=== PATIENT | female | born 1995 | race Two or more races ===

== ENCOUNTER 2016-10-06 13:41 | Emergency (ER) | payer OTHER ==
[2016-10-06 13:51] VITALS: BP 117/65; PULSE 88; TEMP 98.3; BMI 31.0
--- NOTE | 2016-10-06 16:43 | PDOC ---
History of Present Illness - General History Source: Patient Exam Limitations: No Limitations - History of Present Illness Initial Comments: CHIEF COMPLAINT: 21 y/o M2, approximately 17 week female with due date of 03/14/17 c/o vaginal bleeding today. HISTORY OF PRESENT ILLNESS: The patient states when she went to the bathroom earlier today she saw red blood on the toilet paper when she wiped. She also admits to some lower abdominal cramping. She denies f/c, n/v/d, CP, SOB, back pain, hematuria, dysuria, passage of clots. She is not actively bleeding. She is taking vitamins. Her 2 prior miscarriages were in the first trimester of both pregnancies. KENNEL MANAGER DOG TRACK is Dr. Li Vital signs on arrival are within normal limits. REVIEW OF SYSTEMS: GENERAL/CONSTITUTIONAL: No fever/chills. No weakness. No weight change. HEAD, EYES, EARS, NOSE AND THROAT: No change in vision. No ear pain or discharge. No sore throat. CARDIOVASCULAR: No chest pain or shortness of breath. RESPIRATORY: No cough, wheezing, or hemoptysis. GASTROINTESTINAL: +lower abd cramping. No nausea, vomiting, diarrhea. GENITOURINARY: No dysuria, frequency, or change in urination. +red vaginal bleeding on toilet paper MUSCULOSKELETAL: No joint or muscle swelling or pain. No neck or back pain. SKIN: No rash or easy bruising. NEUROLOGIC: No headache, vertigo, loss of consciousness, or loss of sensation. PHYSICAL EXAM: GENERAL: The patient is awake, alert, and fully oriented, in no acute distress. She is well appearing and ambulatory. HEAD: Normal with no signs of trauma. ENT: Pupils equal, round and reactive to light, extraocular movements intact, sclera anicteric, conjunctiva clear. Neck supple. LUNGS: Clear to auscultation bilaterally. Normal excursion. No respiratory distress or use of accessory muscles. CV: RRR, S1/S2, no MRG. Cap refill < 2 sec. ABDOMEN: Soft, non-distended, very minimal TTP of suprapubic region. VAGINAL: Deferred EXTREMITIES: Normal range of motion, no edema. NEUROLOGICAL: Normal speech, normal gait. CN II-XII grossly intact. PSYCH: Normal mood, normal affect. SKIN: Warm, dry, normal turgor, no rashes or lesions noted. <Melissa Gilbert - Last Filed: 10/06/16 18:47> <Abel Garces - Last Filed: 10/06/16 20:53> - General Chief Complaint: Vaginal Bleeding Stated Complaint: SEEING BLOOD (17 WEEKS ) Time Seen by Provider: 10/06/16 16:41 Past History - Past Medical History Other medical history: denies - Psycho/Social/Smoking Cessation Hx Anxiety: No Suicidal Ideation: No Smoking History: Never smoked Have you smoked in the past 12 months: No Information on smoking cessation initiated: No Hx Alcohol Use: No Drug/Substance Use Hx: No Substance Use Type: None <Melissa Gilbert - Last Filed: 10/06/16 18:47> <Abel Garces - Last Filed: 10/06/16 20:53> - Past Medical History Allergies/Adverse Reactions: Allergies Allergy/AdvReac Type Severity Reaction Status Date / Time No Known Allergies Allergy Verified 10/06/16 13:51 Home Medications: Ambulatory Orders NK [No Known Home Medication] 10/06/16 *Physical Exam - Vital Signs Last Vital Signs Temp Pulse Resp BP Pulse Ox 98.3 F 88 20 117/65 100 10/06/16 13:48 10/06/16 13:48 10/06/16 13:48 10/06/16 13:48 10/06/16 13:48 <Melissa Gilbert - Last Filed: 10/06/16 18:47> - Vital Signs Last Vital Signs Temp Pulse Resp BP Pulse Ox 98.3 F 88 20 117/65 100 10/06/16 13:48 10/06/16 13:48 10/06/16 13:48 10/06/16 13:48 10/06/16 13:48 <Abel Garces - Last Filed: 10/06/16 20:53> ED Treatment Course - LABORATORY CBC & Chemistry Diagram: 10/06/16 17:40 10/06/16 17:40 <Melissa Gilbert - Last Filed: 10/06/16 18:47> - LABORATORY CBC & Chemistry Diagram: 10/06/16 17:40 10/06/16 17:40 - ADDITIONAL ORDERS Additional order review: Laboratory Results 10/06/16 10/06/16 10/06/16 17:40 17:40 17:40 Sodium 141 Potassium 3.9 Chloride 104 Carbon Dioxide 23 Anion Gap 14 BUN 5 L Creatinine 0.5 L Creat Clearance w eGFR > 60 Random Glucose 79 Calcium 9.1 Total Bilirubin 0.4 AST 23 ALT 41 Alkaline Phosphatase 74 Total Protein 7.2 Albumin 3.7 Urine Color Colorless Urine Appearance Clear Urine pH 7.0 Urine Protein Negative Urine Glucose (UA) Negative Urine Ketones Negative Urine Blood 2+ H Urine Nitrite Negative Urine Bilirubin Negative Urine Urobilinogen Negative Ur Leukocyte Esterase Negative Urine RBC <1 Urine WBC <1 Ur Epithelial Cells Rare Urine Bacteria Rare Blood Type O POSITIVE Antibody Screen Negative 10/06/16 17:40 RBC 3.67 MCV 88.4 MCHC 34.4 RDW 13.3 MPV 8.1 Neutrophils % 68.6 Lymphocytes % 21.2 Monocytes % 8.4 Eosinophils % 1.3 Basophils % 0.5 <Abel Garces - Last Filed: 10/06/16 20:53> Medical Decision Making - Medical Decision Making A/P: 21 y/o female, approximately 17 weeks with vaginal bleeding today. Plan is as follows: 1. Labs 2. UA/culture 3. Ultrasound Bedside ultrasound confirmed heart tones. I am signing this patient out to my colleague: RAFFY Garces In brief, this patient is being seen in the ED for a chief complaint of: vaginal bleeding 17 weeks I have completed the initial assessment interview note and have ordered: Labs, UA, ultrasound I have reviewed the following results: labs, UA Pending results are: Ultrasound Plan for disposition is as follows: Most likely discharge <Melissa Gilbert - Last Filed: 10/06/16 18:47> *DC/Admit/Observation/Transfer <Melissa Gilbert - Last Filed: 10/06/16 18:47> - Discharge Dispostion Admit: No <Abel Garces - Last Filed: 10/06/16 20:53> Diagnosis at time of Disposition: Vaginal bleeding before 22 weeks gestation, Threatened - Discharge Dispostion Disposition: HOME Condition at time of disposition: Stable - Referrals Referrals: Shazia Handley MD [Primary Care Provider] - - Patient Instructions Printed Discharge Instructions: DI for Threatened Additional Instructions: FOLLOW UP WITH YOUR KENNEL MANAGER DOG TRACK EARLY NEXT WEEK. CALL TO SCHEDULE APPOINTMENT. RETURN IF SYMPTOM WORSEN OR ANY CONCERNS FOR FURTHER EVALUATION. Print Language: INDONESIAN
--- NOTE | 2016-10-06 17:52 | PDOC ---
[id number]/65 100 10/06/16 13:48 10/06/16 13:48 10/06/16 13:48 10/06/16 13:48 10/06/16 13:48 - Physical Exam Comments: 10/06/16 17:52 The patient was examined by [CARMEN Watson] under my direct supervision. I personally evaluated the patient. I concur with the above findings and the plan of care. ED Treatment Course - LABORATORY CBC & Chemistry Diagram: 10/06/16 17:40 10/06/16 17:40 *DC/Admit/Observation/Transfer Diagnosis at time of Disposition: Vaginal bleeding before 22 weeks gestation, Threatened - Discharge Dispostion Disposition: HOME Condition at time of disposition: Stable - Referrals Referrals: Shazia Handley MD [Primary Care Provider] - - Patient Instructions Printed Discharge Instructions: DI for Threatened Additional Instructions: FOLLOW UP WITH YOUR MODELING DIRECTOR EARLY NEXT WEEK. CALL TO SCHEDULE APPOINTMENT. RETURN IF SYMPTOM WORSEN OR ANY CONCERNS FOR FURTHER EVALUATION. Print Language: ROMANSH
[2016-10-06 18:07] LABS: BASOPHIL 0.5 % (0-2.0); EOSINOPHIL 1.3 % (0-4.5); MCH 30.4 pg (25.7-33.7); MCHC 34.4 g/dl (32.0-36.0); MEAN CELL VOLUME 88.4 fl (80-96); MEAN PLT VOLUME 8.1 fl (7.5-11.1); NEUTROPHILS 68.6 % (42.8-82.8); PLATELET COUNT 237 K/MM3 (134-434); RDW 13.3 % (11.6-15.6); WHITE BLOOD COUNT 9.3 K/mm3 (4.0-10.0)
[2016-10-06 18:12] LABS: URINE APPEARANCE CLEAR; URINE BILIRUBIN NEGATIVE (NEGATIVE); URINE COLOR COLORLESS; URINE GLUCOSE (UA) NEGATIVE (NEGATIVE); URINE KETONE NEGATIVE (NEGATIVE); URINE LEUK ESTERASE NEGATIVE (NEGATIVE); URINE NITRITE NEGATIVE (NEGATIVE); URINE PROTEIN NEGATIVE (NEGATIVE); URINE UROBILINOGEN NEGATIVE E.U./dl (0.2-1.0)
[2016-10-06 18:29] LABS: URINE BLOOD 2+ (NEGATIVE)
[2016-10-06 18:36] LABS: ALBUMIN 3.7 g/dl (3.4-5.0); ALK PHOS 74 U/L (45-117); ANION GAP 14 (8-16); BILIRUBIN,TOTAL 0.4 mg/dL (0.2-1.0); CALCIUM 9.1 mg/dL (8.5-10.1); CO2 23 mmol/L (21-32); CREATININE 0.5 mg/dL (0.55-1.02); GLUCOSE,RANDOM 79 mg/dL (74-106); SGOT/AST 23 U/L (15-37); SGPT/ALT 41 U/L (12-78); TOT PROT 7.2 g/dl (6.4-8.2)
[2016-10-06 18:42] LABS: URINE BACTERIA RARE /hpf (NONE SEEN); URINE RBC <1 /hpf (0-3); URINE WBC <1 /hpf (3-5)
== END 2016-10-06 21:07 | disposition home or self-care (01) ==
LOC: JER 13:41
DX: O20.0 Threatened abortion (principal); Z3A.17 17 weeks gestation of pregnancy
CPT/HCPCS: 36415; 76815-TC; 80053; 81003; 81015; 85025; 86850; 86900; 86901; 99283-25

== ENCOUNTER 2017-02-15 11:20 | Inpatient (IN) | payer OTHER ==
[2017-02-15] MEDS: ELECTROLYTE-148 SOLN 1,000 ML IV SCH ×2 (12:30→18:40)
[2017-02-15 13:22] VITALS: BMI 33.2
[2017-02-15 13:24] LABS: BASOPHIL 0.1 % (0-2.0); EOSINOPHIL 0.1 % (0-4.5); MCH 29.9 pg (25.7-33.7); MCHC 34.5 g/dl (32.0-36.0); MEAN CELL VOLUME 86.6 fl (80-96); MEAN PLT VOLUME 8.4 fl (7.5-11.1); NEUTROPHILS 86.5 % (42.8-82.8); PLATELET COUNT 232 K/MM3 (134-434); RDW 14.2 % (11.6-15.6); WHITE BLOOD COUNT 10.6 K/mm3 (4.0-10.0)
[2017-02-15 13:56] LABS: ANION GAP 12 (8-16); CALCIUM 8.7 mg/dL (8.5-10.1); CO2 22 mmol/L (21-32); CREATININE 0.5 mg/dL (0.55-1.02); GLUCOSE,RANDOM 86 mg/dL (74-106)
[2017-02-15 13:59] LABS: INR 1.03 (0.82-1.09); PROTHROMBIN TIME (PATIENT) 11.3 SEC (9.98-11.88)
[2017-02-15 14:02] LABS: ACTIVATED PTT 30.1 SECONDS (26.9-34.4)
[2017-02-15 14:08] LABS: HIV 1 & 2 AB NEGATIVE; HIV 1 AGp24 NEGATIVE
[2017-02-15] MEDS ORDERED: TUBERCULIN PPD 5 TU/0.1ML SYRINGE (IN PATIENT USE ONLY) ID ONE (14:15)
[2017-02-15] MEDS ORDERED: CITRIC ACID/SODIUM CITRATE 30 ML UNIT-DOSE CUP PO ONE (20:12)
[2017-02-15] MEDS ORDERED: ELECTROLYTE-148 SOLN 1,000 ML IV SCH (20:15)
--- NOTE | 2017-02-15 20:16 | HP ---
Past Medical History - Admission Chief Complaint: Low fluid / Breech / IUGR History of Present Illness: 22 yo @ 36 weeks gestation, diagnosed with IUGR / Oligohydramnios. She's pre op for primary . History Source: Patient Limitations to Obtaining History: No Limitations - Past Medical History ...: 3 ...Para: 0 ...Spon : 2 ...EDC by Sono: 03/14/17 - Past Surgical History Past Surgical History: Yes: None Hx Myomectomy: No Hx Transabdominal Cerclage: No - Smoking History Smoking history: Never smoked Have you smoked in the past 12 months: No - Alcohol/Substance Use Hx Alcohol Use: No History of Substance Use: reports: None - Social History History of Recent Travel: No Home Medications - Allergies Allergies/Adverse Reactions: Allergies Allergy/AdvReac Type Severity Reaction Status Date / Time No Known Allergies Allergy Verified 02/08/17 13:08 - Home Medications Home Medications: Ambulatory Orders Pnv95/Ferrous Fumarate/FA [ Vitamin Tablet] 1 each PO DAILY 02/08/17 Family Disease History - Family Disease History Family History: Unremarkable Review of Systems - Review of Systems Constitutional: reports: No Symptoms Eyes: reports: No Symptoms HENT: reports: No Symptoms Neck: reports: No Symptoms Cardiovascular: reports: No Symptoms Respiratory: reports: No Symptoms Gastrointestinal: reports: No Symptoms Genitourinary: reports: Other (Back pain) Breasts: reports: No Symptoms Reported Musculoskeletal: reports: No Symptoms Integumentary: reports: No Symptoms Neurological: reports: No Symptoms Endocrine: reports: No Symptoms Hematology/Lymphatic: reports: No Symptoms Psychiatric: reports: No Symptoms Pain Intensity: 3 Physical Exam - Maternity Vital Signs: Vital Signs Temperature 98.5 F 02/15/17 14:00 Pulse Rate 95 H 02/15/17 19:00 Respiratory Rate 20 02/15/17 19:00 Blood Pressure 123/64 02/15/17 19:00 O2 Sat by Pulse Oximetry (%) Constitutional: Yes: Well Nourished Eyes: Yes: Conjunctiva Clear HENT: Yes: Atraumatic Neck: Yes: Supple Cardiovascular: Yes: Regular Rate and Rhythm Lungs: Clear to auscultation - Abdominal Exam/OB Number of Fetuses: Single Presentation: Vertex - Vaginal Exam/OB Vaginal Bleediing: No Dilatation (cm): 0 - Physical Exam ...Motor Strength: WNL Psychiatric: Yes: Alert, Oriented - Labs Lab Results: CBC, BMP 02/15/17 12:55 02/15/17 12:55 Problem List - Problems (2) Oligohydramnios antepartum Code(s): O41.00X0 - OLIGOHYDRAMNIOS, UNSP TRIMESTER, NOT APPLICABLE OR UNSP Qualifiers: Fetus number: single or unspecified fetus Qualified Code(s): O41.00X0 - Oligohydramnios, unspecified trimester, not applicable or unspecified Assessment/Plan IUP @ 36 weeks Oligohydramnios IUGR Breech presentation Pre op for repeat
[2017-02-15] MEDS ORDERED: morphine SULFATE/Preservative Free 0.5 MG/ML (1cc Syringe) IT ONE (23:31)
[2017-02-15] MEDS ORDERED: ONDANSETRON 4 MG/2 ML VIAL IVPB PRN (23:31)
[2017-02-15] MEDS ORDERED: IBUPROFEN 600 MG TABLET (FP) PO PRN (23:54)
[2017-02-15] MEDS ORDERED: METHYLERGONOVINE MALEATE 0.2 MG/1 ML AMP IM PRN (23:54)
--- NOTE | 2017-02-15 23:57 | OP ---
Operative Note - Note: Operative Date: 02/15/17 Pre-Operative Diagnosis: IUGR / Oligohydramnios/ Breech Operation: Primary Low Transverse Findings: AGA baby in michelle breech position Post-Operative Diagnosis: Same as Pre-op Surgeon: Shazia Handley Benefits Clerk: Vic Celis Anesthesia: Spinal Specimens Removed: Placenta Estimated Blood Loss (mls): 500
[2017-02-16] MEDS: D5W-LR W/ 20 UNITS OXYTOCIN 1,000 ML IV SCH ×4 (00:45→23:45)
[2017-02-16 07:51] LABS: BASOPHIL 0.1 % (0-2.0); MCH 29.5 pg (25.7-33.7); MCHC 33.9 g/dl (32.0-36.0); MEAN CELL VOLUME 87.2 fl (80-96); MEAN PLT VOLUME 8.2 fl (7.5-11.1); NEUTROPHILS 78.1 % (42.8-82.8); PLATELET COUNT 208 K/MM3 (134-434); RDW 14.1 % (11.6-15.6); WHITE BLOOD COUNT 8.6 K/mm3 (4.0-10.0)
--- NOTE | 2017-02-16 08:14 | PN ---
Progress Note (short form) - Note Progress Note: Anesthesia Pain Pt seen and examined S:alert and oriented comfortable O: Vital Signs Temperature 100.1 F H 02/16/17 06:00 Pulse Rate 97 H 02/16/17 06:00 Respiratory Rate 18 02/16/17 06:00 Blood Pressure 125/57 02/16/17 06:00 O2 Sat by Pulse Oximetry (%) 99 02/16/17 01:21 CBC, BMP 02/16/17 07:46 02/15/17 12:55 A/P: s/p c section Mild fever otherwise doing well post op continue current care Nacho Tinajero MD
[2017-02-16] MEDS: FERROUS SO4 325 MG TABLET (FP) PO SCH ×2 (09:56→21:39)
[2017-02-16] MEDS: PRENATAL VITAMINS W/ FOLIC ACID TABLET (FP) PO SCH (09:56)
[2017-02-16] MEDS: SIMETHICONE 80 MG TAB.CHEW (FP) PO PRN ×3 (09:56→20:07)
[2017-02-16] MEDS: ACETAMINOPHEN 325 MG TABLET (FP) PO PRN ×3 (09:56→20:05)
[2017-02-16] MEDS: IBUPROFEN 600 MG TABLET (FP) PO PRN ×3 (09:57→20:06)
--- NOTE | 2017-02-16 15:06 | PN ---
Post Progress Note - Subjective Subjective: Pt seen/evaluated at bedside. Doing well. Pain controlled with medications, armendariz catheter draining clear yellow urine. Tolerating clears. +flatus. Not yet ambulating. Denies CP/SOB/F/C/FIELDS. Type of Delivery: Primary C/S Vital Signs: Vital Signs Temperature 98.8 F 02/16/17 14:01 Pulse Rate 72 02/16/17 14:01 Respiratory Rate 20 02/16/17 14:01 Blood Pressure 110/70 02/16/17 14:01 O2 Sat by Pulse Oximetry (%) 99 02/16/17 01:21 Breast Exam: Yes: Soft Uterus: Yes: Fundus below umbilicus Abdomen/GI: Yes: Abdomen soft, Tender, Passing flatus, Tolerating PO (clears only). No: Abdominal Distention Lochia: Yes: Rubra Lochia, amount: Moderate Extremities: Yes: Calves non-tender. No: Edema Perineum: Yes: Intact Activity: Ambulating - Labs Labs: CBC WBC 8.6 K/mm3 (4.0-10.0) 02/16/17 07:46 RBC 3.21 M/mm3 (3.60-5.2) L 02/16/17 07:46 Hgb 9.5 GM/dL (10.7-15.3) L D 02/16/17 07:46 Hct 28.0 % (32.4-45.2) L 02/16/17 07:46 MCV 87.2 fl (80-96) 02/16/17 07:46 MCH 29.5 pg (25.7-33.7) 02/16/17 07:46 MCHC 33.9 g/dl (32.0-36.0) 02/16/17 07:46 RDW 14.1 % (11.6-15.6) 02/16/17 07:46 Plt Count 208 K/MM3 (134-434) 02/16/17 07:46 MPV 8.2 fl (7.5-11.1) 02/16/17 07:46 Neutrophils % 78.1 % (42.8-82.8) 02/16/17 07:46 Lymphocytes % 12.1 % (8-40) D 02/16/17 07:46 Monocytes % 9.7 % (3.8-10.2) 02/16/17 07:46 Eosinophils % 0.0 % (0-4.5) D 02/16/17 07:46 Basophils % 0.1 % (0-2.0) 02/16/17 07:46 Problem List - Problems (1) delivery delivered Code(s): O82 - ENCOUNTER FOR DELIVERY WITHOUT INDICATION Assessment/Plan 21 y/o POD#1 s/p delivery - AFVSS - Hgb 9.5 post op, pt asymptomatic, will monitor - continue vitamins - advance diet as tolerated - encourage ambulation - d/c armendariz for trial of void - PO pain meds
[2017-02-16] MEDS ORDERED: BISACODYL 10 MG SUPP.RECT RC PRN (23:54)
[2017-02-17] MEDS: SIMETHICONE 80 MG TAB.CHEW (FP) PO PRN ×4 (04:30→20:25)
[2017-02-17] MEDS: ACETAMINOPHEN 325 MG TABLET (FP) PO PRN ×4 (04:37→20:25)
[2017-02-17] MEDS: FERROUS SO4 325 MG TABLET (FP) PO SCH ×2 (09:25→22:16)
[2017-02-17] MEDS: IBUPROFEN 600 MG TABLET (FP) PO PRN ×2 (09:25→17:30)
[2017-02-17] MEDS: PRENATAL VITAMINS W/ FOLIC ACID TABLET (FP) PO SCH (09:28)
[2017-02-17] MEDS ORDERED: FLU VACC QS2017-18 36MOS UP/PF 60 MCG/0.5 ML SYRINGE IM ONE (10:00)
[2017-02-17] MEDS ORDERED: DIPHTH,PERTUSS(ACELL),TET 0.5 ML DISP.SYRIN IM ONE (10:00)
[2017-02-17] MEDS: oxyCODONE HCL 5 MG TABLET PO PRN ×2 (15:03→20:26)
[2017-02-18] MEDS: SIMETHICONE 80 MG TAB.CHEW (FP) PO PRN ×3 (06:02→22:12)
[2017-02-18] MEDS: IBUPROFEN 600 MG TABLET (FP) PO PRN ×3 (06:02→22:13)
[2017-02-18] MEDS: oxyCODONE HCL 5 MG TABLET PO PRN (06:03)
[2017-02-18 07:19] LABS: BASOPHIL 0.4 % (0-2.0); EOSINOPHIL 0.9 % (0-4.5); MCH 30.1 pg (25.7-33.7); MCHC 34.6 g/dl (32.0-36.0); MEAN CELL VOLUME 86.9 fl (80-96); MEAN PLT VOLUME 8.5 fl (7.5-11.1); NEUTROPHILS 62.9 % (42.8-82.8); PLATELET COUNT 211 K/MM3 (134-434); WHITE BLOOD COUNT 8.3 K/mm3 (4.0-10.0)
[2017-02-18] MEDS: PRENATAL VITAMINS W/ FOLIC ACID TABLET (FP) PO SCH (09:06)
[2017-02-18] MEDS: FERROUS SO4 325 MG TABLET (FP) PO SCH ×2 (09:06→22:04)
[2017-02-18] MEDS: ACETAMINOPHEN 325 MG TABLET (FP) PO PRN ×2 (13:46→22:13)
[2017-02-19 09:40] VITALS: BP 123/74; PULSE 64; TEMP 98.5
[2017-02-19] MEDS: PRENATAL VITAMINS W/ FOLIC ACID TABLET (FP) PO SCH (10:42)
[2017-02-19] MEDS: FERROUS SO4 325 MG TABLET (FP) PO SCH (10:42)
[2017-02-19] MEDS: IBUPROFEN 600 MG TABLET (FP) PO PRN (10:45)
[2017-02-19] MEDS: SIMETHICONE 80 MG TAB.CHEW (FP) PO PRN (10:46)
[2017-02-19] MEDS: ACETAMINOPHEN 325 MG TABLET (FP) PO PRN (10:46)
--- NOTE | 2017-02-19 11:06 | PATH ---
Surgical Pathology Report Patient Name: SAMANTHA DOMINGUEZ [facility]. Rec. #: [id number] /Age/Gender: 1995 (Age: 21) / F Account: [id number] Location: [facility] OBS/WOOL DYER Taken: 02/15/2017 Received: 02/16/2017 Reported: 02/19/2017 Physicians: Shazia Handley M.D. Specimen(s) Received PLACENTA Clinical History 36 weeks gestation. Breech presentation, macrosomia Final Diagnosis PLACENTA, DELIVERY: DISRUPTED THIRD TRIMESTER PLACENTA WITH SUBCHORIONIC FIBRIN DEPOSITION, THREE VESSEL UMBILICAL CORD AND UNREMARKABLE PLACENTAL MEMBRANES. Electronically Signed David Medina M.D. Gross Description The specimen is received fresh labeled placenta and is a 407 gram, 21 x 11 x 3 cm. placenta with attached membranes and umbilical cord. The attached membranes are glistening and translucent and insert marginally. The umbilical cord measures 32 cm. in length and averages 1.6 cm. in diameter. The cord inserts eccentrically, 3 cm. to the nearest margin. No true knots or strictures are identified. There is an area of increased tortuosity 8 cm from the placental surface. Cut surface of the umbilical cord reveals 3 vessels. The surface is nicole-blue with increased fibrin deposition and appropriate caliber vessels. The maternal surface is disrupted and fragmented. Sectioning reveals red-brown, spongy parenchyma. No lesions are identified. Missileman sections are submitted in three cassettes as follows: 1- membrane rolls and umbilical cord; 2-3- full thickness sections of placenta. [facility]/02/16/2017 [facility]/02/16/2017
--- NOTE | 2017-02-19 21:41 | PN ---
Progress Note (SOAP) - Objective Vital Signs: Vital Signs Temperature 98.5 F 02/19/17 09:37 Pulse Rate 64 02/19/17 09:37 Respiratory Rate 20 02/19/17 09:37 Blood Pressure 123/74 02/19/17 09:37 O2 Sat by Pulse Oximetry (%) 99 02/16/17 21:00 Constitutional: Yes: Well Nourished, No Distress Labs Lab Results: CBC, BMP 02/18/17 06:25 02/15/17 12:55 Assessment/Plan SP CS POD 4 Stable Plan DC home RTO 1 week
--- NOTE | 2017-02-19 21:43 | PN ---
Progress Note (SOAP) - Subjective Chief Complaint: Pt doing well Pt seen at bedside - Objective Vital Signs: Vital Signs Temperature 98.5 F 02/19/17 09:37 Pulse Rate 64 02/19/17 09:37 Respiratory Rate 20 02/19/17 09:37 Blood Pressure 123/74 02/19/17 09:37 O2 Sat by Pulse Oximetry (%) 99 02/16/17 21:00 Constitutional: Yes: Well Nourished, No Distress Gastrointestinal: Yes: Soft, Abdomen, Obese ....Post : Yes: Uterus firm, Uterus non-tender Breast(s): Yes: WNL Musculoskeletal: Yes: WNL Extremities: Yes: WNL Wound/Incision: Yes: Well Approximated, Steri Strips, Open to air Psychiatric: Yes: WNL, Alert, Oriented Labs Lab Results: CBC, BMP 02/18/17 06:25 02/15/17 12:55
--- NOTE | 2017-03-08 08:29 | OP ---
DATE OF OPERATION: 02/15/2017 PREOPERATIVE DIAGNOSIS: Intrauterine at 36 weeks, breech presentation and oligohydramnios. POSTOPERATIVE DIAGNOSIS: Breech presentation, intrauterine at 36 weeks. PROCEDURE: Primary low transverse section. SURGEON: Shazia Handley MD HEARING INSTRUMENT SPECIALIST: CARMEN ANESTHESIA: Spinal. COMPLICATIONS: None. ESTIMATED BLOOD LOSS: 500 mL. DESCRIPTION OF PROCEDURE: Patient was taken to the operating room, where spinal anesthesia was administered. Patient was then prepped and draped in proper sterile fashion. A Pfannenstiel skin incision was made and carried down through the underlying layer of fascia. The fascia was incised in the midline and extended laterally. The superior aspect of the fascial incision was then grasped with Myron clamps, elevated, and the rectus muscle dissected off bluntly. The rectus muscle was in the midline. The peritoneum was identified and entered sharply with the Metzenbaum scissors. This incision was extended superiorly and inferiorly with good visualization of the bladder. Then, the vesicouterine peritoneum was then incised using a 10-blade. This incision was extended laterally, and a bladder flap created digitally. The bladder blade was reinserted. Then, the lower uterine segment was incised. The head was delivered atraumatically. Nose and mouth were suctioned, and the cord clamped, and cut. The was handed to the awaiting boat loader. The placenta was removed manually. The uterus exteriorized and cleared of all clots and debris. The uterine incision was repaired using 0 Biosyn in a running locked fashion. The second layer of the same suture was used as a means to provide excellent hemostasis. Then, the pelvis was then completely irrigated. The uterus was returned to the abdomen. The peritoneum was closed using 2-0 Biosyn. The fascia was reapproximated using 0 Vicryl in a running fashion, and the skin was closed in a subcuticular fashion using 3-0 Vicryl. Patient tolerated the procedure well. Patient was taken to PACU in stable condition. PATHOLOGY: Placenta. Ale [id number]
== END 2017-02-19 12:05 | disposition home or self-care (01) | DRG 540 ==
LOC: JDEL 11:20 → JLDR 12:10 → J3W 02-16 02:30
PROVIDERS: ADMIT Obstetrics & Gynecology; ATTEND Obstetrics & Gynecology
PROC: 10D00Z1 Extraction of Products of Conception, Low, Open Approach (ICD-10-PCS; principal; 2017-02-15)
DX: O41.03X0 Oligohydramnios, third trimester, not applicable or unspecified (principal); O36.5930 Maternal care for other known or suspected poor fetal growth, third trimester, not applicable or unspecified; O32.1XX0 Maternal care for breech presentation, not applicable or unspecified; O60.14X0 Preterm labor third trimester with preterm delivery third trimester, not applicable or unspecified; Z3A.36 36 weeks gestation of pregnancy; Z37.0 Single live birth
CPT/HCPCS: 36415; 80048; 85025; 85610; 85730; 86593; 86850; 86900; 86901; 87389; 88307-TC; 90686; 90715; G0008